=== PATIENT | male | born 1985 | race Caucasian/White ===

== ENCOUNTER 2020-10-22 10:56 | Emergency (ER) | payer OTHER ==
[~2020-10-22] VITALS: Ht 167.6 cm; Wt 65.7 kg
[2020-10-22] MEDS ORDERED: PERCOCET 5-3251 EACH PO (14:51)
[2020-10-22 17:08] VITALS: BP 125/75
== END 2020-10-22 17:08 | disposition home or self-care (01) ==
LOC: M.ERS 10:56
DX: S53.124A Posterior dislocation of right ulnohumeral joint, initial encounter (principal); S42.451A Displaced fracture of lateral condyle of right humerus, initial encounter for closed fracture; V89.2XXA Person injured in unspecified motor-vehicle accident, traffic, initial encounter; Y93.89 Activity, other specified; Y92.89 Other specified places as the place of occurrence of the external cause; Y99.8 Other external cause status